=== PATIENT | male | born 1945 | race Two or more races ===

== ENCOUNTER 2017-12-23 21:44 | Emergency (ER) | payer MEDICARE, MEDICAID ==
[~2017-12-23] VITALS: Ht 157.5 cm; Wt 60.0 kg
[~2017-12-23 21:44] MED LIST: ASPI-1265 PO; ATOR20TA PO; CEPH500C5 PO; GABA-338 PO; LANTUS SQ; METF500T7 PO; PHEN-873 PO
[2017-12-23 21:52] VITALS: BP 144/77
== END 2017-12-23 22:38 | disposition home or self-care (01) ==
LOC: ER 21:45
DX: H61.21 Impacted cerumen, right ear (principal); S46.212A Strain of muscle, fascia and tendon of other parts of biceps, left arm, initial encounter; E11.42 Type 2 diabetes mellitus with diabetic polyneuropathy; E78.00 Pure hypercholesterolemia, unspecified; Z79.82 Long term (current) use of aspirin; Z79.4 Long term (current) use of insulin; X58.XXXA Exposure to other specified factors, initial encounter; Y93.89 Activity, other specified; Y92.89 Other specified places as the place of occurrence of the external cause; Y99.8 Other external cause status
CPT/HCPCS: 69209; 99282; 99284

== ENCOUNTER 2018-03-07 16:15 | Emergency (ER) | payer MEDICARE, MEDICAID ==
[~2018-03-07] VITALS: Ht 154.9 cm; Wt 65.9 kg
[2018-03-07 16:16] VITALS: BP 141/70
[2018-03-07] MEDS ORDERED: METH-360 PO (17:06)
[2018-03-07] MEDS ORDERED: NAPR-56 PO (17:06)
== END 2018-03-07 17:33 | disposition home or self-care (01) ==
LOC: ER 16:15
DX: M25.511 Pain in right shoulder (principal); E78.00 Pure hypercholesterolemia, unspecified; E11.42 Type 2 diabetes mellitus with diabetic polyneuropathy; G89.29 Other chronic pain; Z56.0 Unemployment, unspecified; Z79.82 Long term (current) use of aspirin; Z79.4 Long term (current) use of insulin; Z79.84 Long term (current) use of oral hypoglycemic drugs; Z79.899 Other long term (current) drug therapy
CPT/HCPCS: 29105; 99284; A4565

== ENCOUNTER 2018-08-21 14:04 | Emergency (ER) | payer MEDICARE, MEDICAID ==
[~2018-08-21] VITALS: Ht 157.5 cm; Wt 68.2 kg
[~2018-08-21 14:04] MED LIST changes: -CEPH500C5 PO; +METH-360 PO; +PHEN-786 PO; -PHEN-873 PO
[2018-08-21 14:08] VITALS: BP 148/79
[2018-08-21] MEDS ORDERED: acetaminophen 325mg tablet PO ONE (14:30)
[2018-08-21] MEDS ORDERED: proCHLORperazine 10mg tablet PO ONE (14:30)
[2018-08-21] MEDS ORDERED: ketorolac tromethamine 15mg/ml inj. IM ONE (15:50)
== END 2018-08-21 16:53 | disposition home or self-care (01) ==
LOC: ER 14:05
DX: R51 Headache (principal); R42 Dizziness and giddiness; E11.42 Type 2 diabetes mellitus with diabetic polyneuropathy; E78.00 Pure hypercholesterolemia, unspecified; G89.29 Other chronic pain; Z56.0 Unemployment, unspecified; Z79.82 Long term (current) use of aspirin; Z79.4 Long term (current) use of insulin; Z79.899 Other long term (current) drug therapy
CPT/HCPCS: 36415; 70450; 85651; 96372; 99284; J1885; Q0164

== ENCOUNTER 2019-01-25 16:00 | Emergency (ER) | payer MEDICARE, MEDICAID ==
[~2019-01-25] VITALS: Ht 157.5 cm; Wt 67.0 kg
[2019-01-25 16:16] VITALS: BP 127/76
== END 2019-01-25 17:38 | disposition home or self-care (01) ==
LOC: ER 16:01
DX: R21 Rash and other nonspecific skin eruption (principal); T50.995A Adverse effect of other drugs, medicaments and biological substances, initial encounter; S40.212A Abrasion of left shoulder, initial encounter; S40.211A Abrasion of right shoulder, initial encounter; R19.7 Diarrhea, unspecified; R11.2 Nausea with vomiting, unspecified; E78.00 Pure hypercholesterolemia, unspecified; G89.29 Other chronic pain; E11.42 Type 2 diabetes mellitus with diabetic polyneuropathy; Z56.0 Unemployment, unspecified; Z79.82 Long term (current) use of aspirin; Z79.4 Long term (current) use of insulin; Z79.84 Long term (current) use of oral hypoglycemic drugs; Z79.899 Other long term (current) drug therapy; X58.XXXA Exposure to other specified factors, initial encounter; Y93.89 Activity, other specified; Y92.89 Other specified places as the place of occurrence of the external cause; Y99.8 Other external cause status
CPT/HCPCS: 82948; 99284

== ENCOUNTER 2019-05-15 21:30 | Emergency (ER) | payer MEDICARE, MEDICAID ==
[~2019-05-15] VITALS: Ht 152.4 cm; Wt 77.3 kg
[~2019-05-15 21:30] MED LIST changes: +METF500T20 PO; -METF500T7 PO
--- NOTE | 2019-05-15 21:52 | NUR ---
Pt did not want to go back out into the lobby, Madelyn LICEA from [facility] said he could come on over and sit in the lobby over there. He was so happy.
--- NOTE | 2019-05-15 23:06 | NUR ---
He got up out of his electric w/c and onto the stretcher without any problems. His arms/legs are WNLS no deficits. C Collar still in place. Covered him up with 2 warmed blankets. He is resting.
[2019-05-16] MEDS ORDERED: cyclobenzaprine 10mg tablet PO ONE (01:45)
[2019-05-16] MEDS ORDERED: naproxen 500mg tablet PO ONE (01:45)
[2019-05-16 02:03] VITALS: BP 145/84
== END 2019-05-16 02:06 | disposition home or self-care (01) ==
LOC: ER 21:31
DX: M54.2 Cervicalgia (principal); R51 Headache; E11.42 Type 2 diabetes mellitus with diabetic polyneuropathy; G89.29 Other chronic pain; E78.00 Pure hypercholesterolemia, unspecified; Z79.4 Long term (current) use of insulin; Z79.82 Long term (current) use of aspirin; Z79.899 Other long term (current) drug therapy; Z87.440 Personal history of urinary (tract) infections; Z56.0 Unemployment, unspecified; W18.39XA Other fall on same level, initial encounter; Y93.89 Activity, other specified; Y92.89 Other specified places as the place of occurrence of the external cause; Y99.8 Other external cause status
CPT/HCPCS: 72040; 99284

== ENCOUNTER 2019-07-14 14:46 | Inpatient (IN) | payer MEDICARE, MEDICAID ==
[~2019-07-14] VITALS: Ht 177.8 cm; Wt 80.0 kg
[2019-07-14] MEDS ORDERED: normal saline 1000ML IV soln IVB ONE (14:55)
[2019-07-14 15:59] LABS: BASOPHILS % (AUTO) 0.2 % (0-1); EOSINOPHILS % (AUTO) 0.1 % (0-6); HEMATOCRIT 35.7 % (42.0-52.0); HEMOGLOBIN 11.6 g/dl (14.0-17.9); LYMPHOCYTES # (AUTO) 0.4 X10'3 (1.1-4.8); LYMPHOCYTES % (AUTO) 4.5 % (21-51); MEAN CORPUSCULAR HEMOGLOBIN 25.9 PG (27.0-31.0); MEAN CORPUSCULAR HGB CONC 32.4 g/dL (33.0-36.5); MEAN CORPUSCULAR VOLUME 79.8 FL (78-98); MEAN PLATELET VOLUME 9.4 FL (7.4-10.4); MONOCYTES # (AUTO) 0.5 X10'3 (0-0.9); MONOCYTES % (AUTO) 5.1 % (2-12); NEUTROPHILS # (AUTO) 8.4 X10'3 (1.8-7.7); NEUTROPHILS % (AUTO) 90.1 % (42-75); PLATELET COUNT 202 X10'3 (140-440); RED BLOOD COUNT 4.47 X10'6 (4.70-6.10); RED CELL DISTRIBUTION WIDTH 15.9 % (11.5-14.5); WHITE BLOOD COUNT 9.4 X10'3 (4.5-11.0)
--- NOTE | 2019-07-14 16:00 | NUR ---
PT IS SLEEPING, EASILY AROUSEABLE BUT FALLS ASLEEP BETWEEN QUESTIONS, PT IS GCS 13, EYES OPEN TO VOICE, ORIENTED TO PERSON ONLY, FOLLOWS SIMPLE COMMANDS, PUPILS ARE PINPOINT, RESP EVEN AND UNLABORED, SKIN P/W/D, CAREGIVER AT BEDSIDE
--- NOTE | 2019-07-14 16:01 | NUR ---
1ST LITER NS INFUSING W/O
--- NOTE | 2019-07-14 16:10 | NUR ---
IN AND OUT CATH DONE WITH STERILE TECHNIQUE, 300ML OF CLEAR DARK YELLOW OUT, SAMPLE SENT TO LAB
[2019-07-14 16:16] LABS: ANION GAP 10 (8-16); BILIRUBIN,TOTAL 0.7 MG/DL (0.1-1.0); BLOOD UREA NITROGEN 24 MG/DL (7-18); BUN/CREATININE RATIO 21.6 (5.4-32.0); CALCIUM 9.1 MG/DL (8.5-10.1); CHLORIDE 106 MMOL/L (99-107); CREATININE 1.11 MG/DL (0.60-1.10); GLUCOSE 123 MG/DL (70-104); POTASSIUM 4.1 MMOL/L (3.5-5.1); SODIUM 142 MMOL/L (135-145); TOTAL CARBON DIOXIDE 25.8 MMOL/L (24-32); TOTAL PROTEIN 7.8 G/DL (6.4-8.2); eGFR 65 ML/MIN
[2019-07-14 16:17] LABS: ALANINE AMINOTRANSFERASE 33 U/L (12-78); ALBUMIN/GLOBULIN RATIO 1.1 (1.1-1.5); ALKALINE PHOSPHATASE 103 IU/L (46-116); ASPARTATE AMINO TRANSFERASE 26 U/L (10-37)
[2019-07-14 16:22] LABS: ETHANOL < 0.010 GM/DL (0.0-0.010)
[2019-07-14 16:39] LABS: CLARITY,URINE CLEAR (Clear); COLOR,URINE YELLOW (Yellow); GLUCOSE, URINE NEGATIVE (Neg); KETONES,URINE TRACE mg/dl (Neg); LEUKOCYTE ESTERASE ,URINE NEGATIVE (Neg); NITRITES, URINE NEGATIVE (Neg); OCCULT BLOOD,URINE LARGE (Neg); PH,URINE 5.5 (4.8-8.0); PROTEIN,URINE NEGATIVE (Neg); UROBILINOGEN,URINE 0.2 E.U/dL (0.2-1.0)
[2019-07-14 16:50] LABS: UA COLLECTION TYPE FOLEY CATH
[2019-07-14 16:51] LABS: BACTERIA,URINE NONE SEEN /HPF (Neg); MUCUS STRANDS NONE SEEN /LPF (Neg); RBC,URINE 20-50 /HPF (0-2); SQUAMOUS EPITHELIAL CELL,UR NONE SEEN /LPF (FEW); WBC,URINE NONE SEEN /HPF (0-4)
[2019-07-14 16:57] LABS: URINE AMPHETAMINE SCREEN NEGATIVE (Neg); URINE BARBITUATE SCREEN NEGATIVE (Neg); URINE BENZODIAZEPINES SCREEN NEGATIVE (Neg); URINE CANNABINOID SCREEN NEGATIVE (Neg); URINE COCAINE SCREEN NEGATIVE (Neg); URINE METHADONE SCREEN NEGATIVE (Neg); URINE OPIATE SCREEN POSITIVE (Neg); URINE PHENCYCLIDINE SCREEN NEGATIVE (Neg)
[2019-07-14] MEDS: dextrose 5%-1/2 normal saline 1,000 ML IV SCH (17:17)
[2019-07-14] MEDS ORDERED: mag hydrox/Alum hydrox/simeth 30ml oral suspension PO PRN (17:20)
[2019-07-14] MEDS ORDERED: ondansetron/PF 4mg/2ml inj IV PRN (17:20)
[2019-07-14] MEDS ORDERED: magnesium hydroxide 30ml (MOM) UD suspension PO PRN (17:20)
--- NOTE | 2019-07-14 17:50 | NUR ---
PT'S [facility] WORKER DORA
[2019-07-14] MEDS ORDERED: PRAM0.754 PO (17:57)
[2019-07-14] MEDS ORDERED: LISI2.5T2 PO (17:57)
[2019-07-14] MEDS ORDERED: SIMV10TA6 PO (17:57)
[2019-07-14] MEDS ORDERED: ASPI-611 PO (17:57)
[2019-07-14] MEDS ORDERED: GLIP10TA11 PO (17:57)
[2019-07-14] MEDS ORDERED: PREG100C55 PO (17:57)
[2019-07-14] MEDS ORDERED: OXYC-511 PO (17:57)
[2019-07-14] MEDS ORDERED: INSU100I31 SQ (17:57)
[2019-07-14] MEDS ORDERED: IBUP-1984 PO (18:00)
--- NOTE | 2019-07-14 18:08 | NUR ---
PT CONTINUES TO SLEEP, AROUSEABLE TO VOICE, ORIENTED TO PERSON AND PLACE, FOLLOW SIMPLE COMMANDS, REMAINS GCS 13,
--- NOTE | 2019-07-14 18:43 | NUR ---
PT AWAKES TO PAINFUL STIMULUS, BUT FALL ASLEEP W/O ANSWERING QUESTIONS. VSS
--- NOTE | 2019-07-14 19:29 | NUR ---
REPORT TO ADELINE LICEA
[2019-07-14 20:00] VITALS: BP 110/56
[2019-07-14] MEDS: pregabalin 25mg capsule PO SCH (20:59)
[2019-07-14] MEDS ORDERED: insulin glargine (Lantus) pen - multi-dose SQ SCH ×2 (21:00)
--- NOTE | 2019-07-14 21:00 | NUR ---
PT arousable to speaking, but not clear enough to safely swallow medication
[2019-07-14 22:00] VITALS: BP 103/58
--- NOTE | 2019-07-15 03:06 | NUR ---
Reviewed and agree with SRN assessment.
[2019-07-15] MEDS: dextrose 5%-1/2 normal saline 1,000 ML IV SCH (05:02)
[2019-07-15 06:23] LABS: BASOPHILS % (AUTO) 0.1 % (0-1); EOSINOPHILS % (AUTO) 0 % (0-6); HEMATOCRIT 29.8 % (42.0-52.0); HEMOGLOBIN 9.7 g/dl (14.0-17.9); LYMPHOCYTES # (AUTO) 1.1 X10'3 (1.1-4.8); LYMPHOCYTES % (AUTO) 7.4 % (21-51); MEAN CORPUSCULAR HEMOGLOBIN 26.2 PG (27.0-31.0); MEAN CORPUSCULAR HGB CONC 32.7 g/dL (33.0-36.5); MEAN PLATELET VOLUME 9.5 FL (7.4-10.4); NEUTROPHILS # (AUTO) 12.8 X10'3 (1.8-7.7); NEUTROPHILS % (AUTO) 85.5 % (42-75); PLATELET COUNT 174 X10'3 (140-440); RED BLOOD COUNT 3.72 X10'6 (4.70-6.10); RED CELL DISTRIBUTION WIDTH 16.3 % (11.5-14.5)
--- NOTE | 2019-07-15 06:30 | NUR ---
Problems reprioritized. Patient report given, questions answered & plan of care reviewed with Flory LICEA.
[2019-07-15 06:31] LABS: ALBUMIN 3.1 G/DL (3.4-5.0); ANION GAP 8 (8-16); BLOOD UREA NITROGEN 22 MG/DL (7-18); BUN/CREATININE RATIO 19.8 (5.4-32.0); CALCIUM 8.1 MG/DL (8.5-10.1); CHLORIDE 108 MMOL/L (99-107); CREATININE 1.11 MG/DL (0.60-1.10); GLUCOSE 96 MG/DL (70-104); POTASSIUM 3.8 MMOL/L (3.5-5.1); SODIUM 141 MMOL/L (135-145); TOTAL CARBON DIOXIDE 25.4 MMOL/L (24-32); eGFR 65 ML/MIN
[2019-07-15] MEDS: atorvastatin 10mg tablet PO SCH (08:04)
[2019-07-15] MEDS: aspirin 81mg tablet.DR PO SCH (08:04)
[2019-07-15] MEDS: pregabalin 25mg capsule PO SCH ×3 (08:05→20:04)
[2019-07-15] MEDS: acetaminophen 325mg tablet PO PRN (08:07)
[2019-07-15] MEDS: lisinopril 2.5mg tablet PO SCH (08:11)
[2019-07-15 08:56] VITALS: BP 114/56
[2019-07-15 10:00] VITALS: BP 104/45
--- NOTE | 2019-07-15 10:33 | NUR ---
Malnutrition consult: Pt with positive malnutrition risk screen on admission given unsure if pt has lost any wt. Unable to obtain any information from pt at this time as pt a poor historian and admit with AMS, likely toxic encephalopathy per H&P. Pt A/O x1 and confused per physical assessment. Pt currently on CHO controlled diet documented with 0% PO intake first meal up to 25-50% PO intake second meal. AMS likely to interfere with PO intake. Only recent scaled wt hx is 65.91 kg taken 03/07/18 with a chair scale, current documented wt is an "emergency" wt at 80 kg. Noted that patient's documented ht hx is 60-62" at past visits, currently documented as 70". Updated BMI is obese at 33.3. Pt with no significant edema or decrease in muscle strength. Pt currently does not meet criteria for malnutrition. DM consult: Pt with A1c 7.8, DM education not appropriate at this time given current mentation. Will continue to follow. Addendum: 07/15/19 at [address] Amended: Links added.
[2019-07-15] MEDS: oxyCODONE/APAP 10/325mg tablet PO PRN ×2 (11:13→20:05)
[2019-07-15] MEDS ORDERED: glucagon, human recombinant 1mg kit SUBCUT PRN (12:20)
[2019-07-15] MEDS ORDERED: dextrose ORAL solution 15 GM/59 ML bottle PO PRN ×2 (12:20)
[2019-07-15] MEDS ORDERED: dextrose 50%-water 50ml dispensing syringe IV PRN ×2 (12:20)
[2019-07-15 18:00] VITALS: BP 118/60
--- NOTE | 2019-07-15 18:33 | NUR ---
Patient in room ORTHO 4009. I have received report from Flory LICEA and had the opportunity to ask questions and assume patient care. patient is with family members having dinner in the room.
[2019-07-15] MEDS: insulin glargine (Lantus) pen - multi-dose SQ SCH (21:18)
[2019-07-15 23:31] VITALS: BP 125/50
[2019-07-16] MEDS: oxyCODONE/APAP 10/325mg tablet PO PRN (04:42)
[2019-07-16 06:00] VITALS: BP 129/50
[2019-07-16 06:16] LABS: BASOPHILS % (AUTO) 0.4 % (0-1); EOSINOPHILS # (AUTO) 0.1 X10'3 (0-0.9); EOSINOPHILS % (AUTO) 1.7 % (0-6); HEMATOCRIT 30.7 % (42.0-52.0); HEMOGLOBIN 10.1 g/dl (14.0-17.9); LYMPHOCYTES # (AUTO) 1.3 X10'3 (1.1-4.8); LYMPHOCYTES % (AUTO) 14.7 % (21-51); MEAN CORPUSCULAR HEMOGLOBIN 26.1 PG (27.0-31.0); MEAN CORPUSCULAR HGB CONC 32.9 g/dL (33.0-36.5); MEAN CORPUSCULAR VOLUME 79.4 FL (78-98); MEAN PLATELET VOLUME 9.5 FL (7.4-10.4); MONOCYTES # (AUTO) 0.7 X10'3 (0-0.9); MONOCYTES % (AUTO) 8.1 % (2-12); NEUTROPHILS # (AUTO) 6.8 X10'3 (1.8-7.7); NEUTROPHILS % (AUTO) 75.1 % (42-75); PLATELET COUNT 175 X10'3 (140-440); RED BLOOD COUNT 3.86 X10'6 (4.70-6.10); RED CELL DISTRIBUTION WIDTH 16.2 % (11.5-14.5); WHITE BLOOD COUNT 9.1 X10'3 (4.5-11.0)
--- NOTE | 2019-07-16 06:30 | NUR ---
Patient in room ORTHO 4009. I have received report from and had the opportunity to ask questions and assume patient care VINAYAK Santana.
[2019-07-16 06:40] LABS: ALBUMIN 2.9 G/DL (3.4-5.0); ANION GAP 9 (8-16); BLOOD UREA NITROGEN 20 MG/DL (7-18); BUN/CREATININE RATIO 18.9 (5.4-32.0); CALCIUM 8.4 MG/DL (8.5-10.1); CHLORIDE 110 MMOL/L (99-107); CREATININE 1.06 MG/DL (0.60-1.10); GLUCOSE 81 MG/DL (70-104); POTASSIUM 3.6 MMOL/L (3.5-5.1); SODIUM 145 MMOL/L (135-145); TOTAL CARBON DIOXIDE 26.1 MMOL/L (24-32); eGFR 69 ML/MIN
--- NOTE | 2019-07-16 06:43 | NUR ---
Problems reprioritized. Patient report given, questions answered & plan of care reviewed with Carleen LICEA.
[2019-07-16] MEDS: aspirin 81mg tablet.DR PO SCH (08:26)
[2019-07-16] MEDS: atorvastatin 10mg tablet PO SCH (08:26)
[2019-07-16] MEDS: pregabalin 25mg capsule PO SCH ×3 (08:26→21:27)
[2019-07-16] MEDS: lisinopril 2.5mg tablet PO SCH (08:27)
[2019-07-16] MEDS: acetaminophen 325mg tablet PO PRN (09:01)
[2019-07-16 10:00] VITALS: BP 122/55
[2019-07-16] MEDS ORDERED: potassium CL 10mEq/100ml bag 100 ML IV PRN (12:30)
[2019-07-16] MEDS ORDERED: furosemide 10 MG/1 ML 10ml inj IV ONE (12:30)
[2019-07-16] MEDS ORDERED: magnesium Cl slow-release 64mg tablet PO PRN (12:30)
[2019-07-16] MEDS ORDERED: potassium Cl 20 mEq SR tablet PO PRN (12:30)
[2019-07-16] MEDS ORDERED: magnesium 4gm in 100ml NS 100 ML IV PRN (12:30)
[2019-07-16] MEDS ORDERED: loperamide 2mg capsule PO ONE (14:25)
[2019-07-16 18:00] VITALS: BP 143/59
--- NOTE | 2019-07-16 18:48 | NUR ---
Problems reprioritized. Patient report given, questions answered & plan of care reviewed with VINAYAK Reilly.
[2019-07-16] MEDS: furosemide 40mg/4ml inj IV SCH (21:27)
[2019-07-16] MEDS: insulin glargine (Lantus) pen - multi-dose SQ SCH (21:36)
[2019-07-16 22:00] VITALS: BP 100/50
[2019-07-17] MEDS: heparin, porcine 5000 units/ml vial SQ SCH ×3 (00:17→20:07)
[2019-07-17 06:00] VITALS: BP 105/51
--- NOTE | 2019-07-17 06:29 | NUR ---
Received report from Bertha LICEA
--- NOTE | 2019-07-17 06:35 | NUR ---
REPORT GIVEN TO VINAYAK TORRES.
[2019-07-17 06:43] LABS: BASOPHILS % (AUTO) 0.4 % (0-1); EOSINOPHILS # (AUTO) 0.1 X10'3 (0-0.9); HEMATOCRIT 34.7 % (42.0-52.0); HEMOGLOBIN 11.5 g/dl (14.0-17.9); LYMPHOCYTES # (AUTO) 1.2 X10'3 (1.1-4.8); LYMPHOCYTES % (AUTO) 14.5 % (21-51); MEAN CORPUSCULAR HEMOGLOBIN 26.1 PG (27.0-31.0); MEAN CORPUSCULAR HGB CONC 33.1 g/dL (33.0-36.5); MEAN CORPUSCULAR VOLUME 78.8 FL (78-98); MEAN PLATELET VOLUME 9.2 FL (7.4-10.4); MONOCYTES # (AUTO) 0.8 X10'3 (0-0.9); MONOCYTES % (AUTO) 9.7 % (2-12); NEUTROPHILS # (AUTO) 6.1 X10'3 (1.8-7.7); NEUTROPHILS % (AUTO) 74.4 % (42-75); PLATELET COUNT 229 X10'3 (140-440); RED BLOOD COUNT 4.41 X10'6 (4.70-6.10); RED CELL DISTRIBUTION WIDTH 16.4 % (11.5-14.5); WHITE BLOOD COUNT 8.2 X10'3 (4.5-11.0)
[2019-07-17 07:04] LABS: ALBUMIN 3.4 G/DL (3.4-5.0); ANION GAP 9 (8-16); BLOOD UREA NITROGEN 23 MG/DL (7-18); BUN/CREATININE RATIO 21.1 (5.4-32.0); CALCIUM 8.7 MG/DL (8.5-10.1); CHLORIDE 102 MMOL/L (99-107); CREATININE 1.09 MG/DL (0.60-1.10); GLUCOSE 51 MG/DL (70-104); MAGNESIUM 2.1 MG/DL (1.5-2.4); SODIUM 141 MMOL/L (135-145); TOTAL CARBON DIOXIDE 29.8 MMOL/L (24-32); eGFR 66 ML/MIN
[2019-07-17 07:16] LABS: POTASSIUM 2.9 MMOL/L (3.5-5.1)
[2019-07-17] MEDS: lisinopril 2.5mg tablet PO SCH (08:00)
[2019-07-17] MEDS: furosemide 40mg/4ml inj IV SCH ×2 (08:00→20:06)
[2019-07-17] MEDS ORDERED: insulin Lispro (HumaLOG) vial - multi-dose SQ SCH (08:10)
[2019-07-17] MEDS ORDERED: MESSAGE TO PHARMACY PO ONE (08:10)
[2019-07-17] MEDS: aspirin 81mg tablet.DR PO SCH (09:45)
[2019-07-17] MEDS: pregabalin 25mg capsule PO SCH ×3 (09:46→20:07)
[2019-07-17] MEDS: atorvastatin 10mg tablet PO SCH (09:46)
[2019-07-17] MEDS: potassium Cl 20 mEq SR tablet PO PRN ×2 (09:55→13:26)
[2019-07-17 10:00] VITALS: BP 136/61
[2019-07-17] MEDS ORDERED: LORazepam 1 MG tablet PO ONE (10:50)
[2019-07-17] MEDS ORDERED: iohexol 350MG/ML 100ml bottle IV ONE (11:51)
[2019-07-17] MEDS: oxyCODONE/APAP 10/325mg tablet PO PRN ×2 (13:25→20:07)
[2019-07-17 14:41] LABS: MAGNESIUM 2.2 MG/DL (1.5-2.4); POTASSIUM 3.8 MMOL/L (3.5-5.1)
[2019-07-17 18:00] VITALS: BP 119/56
--- NOTE | 2019-07-17 18:22 | NUR ---
Problems reprioritized. Patient report given, questions answered & plan of care reviewed with VINAYAK Reilly.
[2019-07-17] MEDS: insulin glargine (Lantus) pen - multi-dose SQ SCH ×2 (19:30→21:15)
[2019-07-17 22:00] VITALS: BP 114/58
[2019-07-17] MEDS ORDERED: levoFLOXACIN-Levaquin 750MG/D5 150 ML IV SCH (22:00)
[2019-07-18] MEDS: oxyCODONE/APAP 10/325mg tablet PO PRN (04:08)
[2019-07-18 05:43] LABS: BASOPHILS % (AUTO) 0.7 % (0-1); EOSINOPHILS # (AUTO) 0.2 X10'3 (0-0.9); EOSINOPHILS % (AUTO) 2.4 % (0-6); HEMATOCRIT 33.5 % (42.0-52.0); HEMOGLOBIN 11.1 g/dl (14.0-17.9); LYMPHOCYTES # (AUTO) 1.4 X10'3 (1.1-4.8); LYMPHOCYTES % (AUTO) 21.5 % (21-51); MEAN CORPUSCULAR HEMOGLOBIN 26.4 PG (27.0-31.0); MEAN CORPUSCULAR HGB CONC 33.3 g/dL (33.0-36.5); MEAN CORPUSCULAR VOLUME 79.4 FL (78-98); MEAN PLATELET VOLUME 9.2 FL (7.4-10.4); MONOCYTES # (AUTO) 0.6 X10'3 (0-0.9); MONOCYTES % (AUTO) 9.6 % (2-12); NEUTROPHILS # (AUTO) 4.3 X10'3 (1.8-7.7); NEUTROPHILS % (AUTO) 65.8 % (42-75); PLATELET COUNT 224 X10'3 (140-440); RED BLOOD COUNT 4.21 X10'6 (4.70-6.10); RED CELL DISTRIBUTION WIDTH 15.9 % (11.5-14.5); WHITE BLOOD COUNT 6.6 X10'3 (4.5-11.0)
[2019-07-18 06:00] VITALS: BP 108/61
[2019-07-18 06:03] LABS: ALBUMIN 3.2 G/DL (3.4-5.0); ANION GAP 9 (8-16); BLOOD UREA NITROGEN 25 MG/DL (7-18); BUN/CREATININE RATIO 18.4 (5.4-32.0); CALCIUM 8.1 MG/DL (8.5-10.1); CHLORIDE 103 MMOL/L (99-107); CREATININE 1.36 MG/DL (0.60-1.10); GLUCOSE 81 MG/DL (70-104); PHOSPHORUS 4.1 MG/DL (2.3-4.5); POTASSIUM 3.9 MMOL/L (3.5-5.1); SODIUM 141 MMOL/L (135-145); TOTAL CARBON DIOXIDE 29.2 MMOL/L (24-32); eGFR 52 ML/MIN
--- NOTE | 2019-07-18 06:05 | NUR ---
Patient in room ORTHO 4009. I have received report from Melba LICEA and had the opportunity to ask questions and assume patient care.
--- NOTE | 2019-07-18 06:36 | NUR ---
REPORT GIVEN TO VINAYAK GREEN.
[2019-07-18] MEDS: aspirin 81mg tablet.DR PO SCH (07:40)
[2019-07-18] MEDS: pregabalin 25mg capsule PO SCH (07:42)
[2019-07-18] MEDS: atorvastatin 10mg tablet PO SCH (07:42)
[2019-07-18] MEDS: furosemide 40mg/4ml inj IV SCH (07:43)
[2019-07-18] MEDS: lisinopril 2.5mg tablet PO SCH (07:43)
[2019-07-18] MEDS: heparin, porcine 5000 units/ml vial SQ SCH (07:43)
[2019-07-18 10:00] VITALS: BP 132/72
[2019-07-18] MEDS ORDERED: LEVO750T46 PO (10:04)
[2019-07-18] MEDS ORDERED: ALBU8.5H8 INH (10:05)
[2019-07-18] MEDS ORDERED: levoFLOXACIN 750MG TABLET PO SCH (11:00)
--- NOTE | 2019-07-18 13:14 | NUR ---
Patient stable for discharge home. All discharge instructions given to patient and prescriptions called into [facility] on [address]. IV out
[2019-07-19] MEDS ORDERED: levoFLOXACIN 750MG TABLET PO SCH (11:00)
== END 2019-07-18 12:25 | disposition home health service (06) | DRG 91 ==
LOC: ER 14:47 → OBSVTOIN 17:17 → ED HOLD 17:17 → ORTHO 4S 19:48
PROVIDERS: ADMIT Internal Medicine; ATTEND Family Medicine
PROC: 4A10X4Z Monitoring of Central Nervous Electrical Activity, External Approach (ICD-10-PCS; 2019-07-15)
PROC: B32T1ZZ Computerized Tomography (CT Scan) of Left Pulmonary Artery using Low Osmolar Contrast (ICD-10-PCS; principal; 2019-07-17)
PROC: B32S1ZZ Computerized Tomography (CT Scan) of Right Pulmonary Artery using Low Osmolar Contrast (ICD-10-PCS; 2019-07-17)
DX: G92 Toxic encephalopathy (principal); J18.9 Pneumonia, unspecified organism; D64.9 Anemia, unspecified; E11.42 Type 2 diabetes mellitus with diabetic polyneuropathy; E78.00 Pure hypercholesterolemia, unspecified; E78.5 Hyperlipidemia, unspecified; G89.29 Other chronic pain; I10 Essential (primary) hypertension; M54.9 Dorsalgia, unspecified; R55 Syncope and collapse; Z79.84 Long term (current) use of oral hypoglycemic drugs; Z56.0 Unemployment, unspecified; Z79.82 Long term (current) use of aspirin; Z79.899 Other long term (current) drug therapy; Z79.4 Long term (current) use of insulin
CPT/HCPCS: 36415; 70450; 70544; 70551; 71045; 71046; 71275; 80048; 80053; 80305; 80320; 80329; 81001; 82140; 82948; 83036; 83735; 84100; 84132; 84443; 85025; 85379; 87081; 93005; 93306; 93880; 93970; 95816; 96360; 97162; 97530; 99285; G0378; J1644; J1815; J1940; J1956; Q9967

== ENCOUNTER 2019-08-18 01:50 | Emergency (ER) | payer MEDICARE, MEDICAID ==
[~2019-08-18] VITALS: Ht 152.4 cm; Wt 71.5 kg
[~2019-08-18 01:50] MED LIST changes: +ALBU8.5H8 INH; -ASPI-1265 PO; +ASPI-611 PO; -ATOR20TA PO; -GABA-338 PO; +GLIP10TA11 PO; +IBUP-1984 PO; +INSU100I31 SQ; -LANTUS SQ; +LEVO750T46 PO; +LISI2.5T2 PO; -METF500T20 PO; -METH-360 PO; +OXYC-511 PO; -PHEN-786 PO; +PRAM0.754 PO; +PREG100C55 PO; +SIMV10TA98 PO
[2019-08-18] MEDS ORDERED: AZIT250T PO (02:12)
[2019-08-18 02:25] VITALS: BP 149/73
== END 2019-08-18 02:27 | disposition home or self-care (01) ==
LOC: ER 01:51
DX: R05 Cough (principal); R09.89 Other specified symptoms and signs involving the circulatory and respiratory systems; R09.3 Abnormal sputum; R51 Headache; E11.42 Type 2 diabetes mellitus with diabetic polyneuropathy; E78.00 Pure hypercholesterolemia, unspecified; I10 Essential (primary) hypertension; G89.29 Other chronic pain; Z56.0 Unemployment, unspecified; Z79.82 Long term (current) use of aspirin; Z79.4 Long term (current) use of insulin; Z79.899 Other long term (current) drug therapy
CPT/HCPCS: 71045; 87502; 87503; 99284

== ENCOUNTER 2020-04-09 02:55 | Emergency (ER) | payer BC, MEDICARE, MEDICAID ==
[~2020-04-09] VITALS: Ht 152.4 cm; Wt 86.4 kg
[~2020-04-09 02:55] MED LIST changes: -LEVO750T46 PO
[2020-04-09] MEDS ORDERED: oxyCODONE IR 5mg (immed. release) tablet PO ONE (03:40)
[2020-04-09 05:08] VITALS: BP 138/106
== END 2020-04-09 05:12 | disposition home or self-care (01) ==
LOC: ER 02:55
DX: M54.42 Lumbago with sciatica, left side (principal); M79.652 Pain in left thigh; M79.89 Other specified soft tissue disorders; E11.42 Type 2 diabetes mellitus with diabetic polyneuropathy; E78.00 Pure hypercholesterolemia, unspecified; I10 Essential (primary) hypertension; G89.29 Other chronic pain; Z87.440 Personal history of urinary (tract) infections; Z98.890 Other specified postprocedural states; Z56.0 Unemployment, unspecified; Z79.4 Long term (current) use of insulin; Z79.899 Other long term (current) drug therapy
CPT/HCPCS: 72131; 99284

== ENCOUNTER 2020-06-14 22:17 | Emergency (ER) | payer BC, MEDICARE, MEDICAID ==
[~2020-06-14] VITALS: Ht 152.4 cm; Wt 81.4 kg
[~2020-06-14 22:17] MED LIST changes: -OXYC-511 PO; +OXYC1TAB17 PO
[2020-06-14 22:19] VITALS: BP 173/85
[2020-06-14] MEDS ORDERED: TETanus/Pertussis (Acell)/Diphther VAC/PF (Tdap-Adult) 0.5ml syringe IMVAC ONE (22:45)
[2020-06-14] MEDS ORDERED: LIDOcaine 1% W/epiNEPHrine 1:200,000 10ml vial IJ ONE (22:45)
[2020-06-14] MEDS ORDERED: CEPH250T PO (23:22)
[2020-06-15] MEDS ORDERED: bacitracin 15gm ointment TP ONE (00:50)
== END 2020-06-15 01:05 | disposition home or self-care (01) ==
LOC: ER 22:18
DX: S91.115A Laceration without foreign body of left lesser toe(s) without damage to nail, initial encounter (principal); E11.42 Type 2 diabetes mellitus with diabetic polyneuropathy; E78.00 Pure hypercholesterolemia, unspecified; I10 Essential (primary) hypertension; G89.29 Other chronic pain; Z87.440 Personal history of urinary (tract) infections; Z98.890 Other specified postprocedural states; Z56.0 Unemployment, unspecified; Z79.82 Long term (current) use of aspirin; Z79.4 Long term (current) use of insulin; Z79.899 Other long term (current) drug therapy; X58.XXXA Exposure to other specified factors, initial encounter; Y93.89 Activity, other specified; Y92.89 Other specified places as the place of occurrence of the external cause; Y99.8 Other external cause status
CPT/HCPCS: 12001; 90471; 90715; 99283

== ENCOUNTER 2021-05-22 07:45 | Emergency (ER) | payer MEDICARE, MEDICAID ==
[~2021-05-22] VITALS: Ht 154.9 cm; Wt 80.0 kg
[~2021-05-22 07:45] MED LIST changes: +ALBU8.5H17 INH; -ALBU8.5H8 INH; +LISI2.5T14 PO; -LISI2.5T2 PO
[2021-05-22 07:49] VITALS: BP 142/64
== END 2021-05-22 17:33 | disposition home or self-care (01) ==
LOC: ER 07:46
DX: S91.311A Laceration without foreign body, right foot, initial encounter (principal); E78.00 Pure hypercholesterolemia, unspecified; I10 Essential (primary) hypertension; E11.9 Type 2 diabetes mellitus without complications; G89.29 Other chronic pain; Z87.440 Personal history of urinary (tract) infections; Z98.890 Other specified postprocedural states; Z56.0 Unemployment, unspecified; Z79.82 Long term (current) use of aspirin; Z79.4 Long term (current) use of insulin; Z79.899 Other long term (current) drug therapy; W45.8XXA Other foreign body or object entering through skin, initial encounter; Y93.89 Activity, other specified; Y92.89 Other specified places as the place of occurrence of the external cause; Y99.8 Other external cause status
CPT/HCPCS: 12001; 99284

== ENCOUNTER 2021-12-02 06:26 | Emergency (ER) | payer MEDICARE, MEDICAID ==
[~2021-12-02] VITALS: Ht 167.6 cm; Wt 90.0 kg
[2021-12-02 06:53] LABS: CLARITY,URINE TURBID (Clear)
[2021-12-02 06:53] LABS: BASOPHILS # (AUTO) 0.1 X10'3 (0-0.2); BASOPHILS % (AUTO) 1.1 % (0-1); EOSINOPHILS # (AUTO) 0.1 X10'3 (0-0.9); EOSINOPHILS % (AUTO) 2.2 % (0-6); HEMATOCRIT 42.9 % (42.0-52.0); HEMOGLOBIN 14.4 g/dl (14.0-17.9); LYMPHOCYTES # (AUTO) 1.1 X10'3 (1.1-4.8); LYMPHOCYTES % (AUTO) 17.6 % (21-51); MEAN CORPUSCULAR HEMOGLOBIN 29.1 PG (27.0-31.0); MEAN CORPUSCULAR HGB CONC 33.5 g/dL (33.0-36.5); MEAN CORPUSCULAR VOLUME 86.9 FL (78-98); MEAN PLATELET VOLUME 9.7 FL (7.4-10.4); MONOCYTES # (AUTO) 0.5 X10'3 (0-0.9); MONOCYTES % (AUTO) 8.3 % (2-12); NEUTROPHILS # (AUTO) 4.3 X10'3 (1.8-7.7); NEUTROPHILS % (AUTO) 70.8 % (42-75); PLATELET COUNT 183 X10'3 (140-440); RED BLOOD COUNT 4.94 X10'6 (4.70-6.10); RED CELL DISTRIBUTION WIDTH 13.9 % (11.5-14.5); WHITE BLOOD COUNT 6.1 X10'3 (4.5-11.0)
[2021-12-02 07:03] LABS: UA COLLECTION TYPE VOIDED
[2021-12-02 07:04] LABS: COLOR,URINE Brown (Yellow)
[2021-12-02 07:08] LABS: SQUAMOUS EPITHELIAL CELL,UR MODERATE /LPF (FEW)
[2021-12-02 07:09] LABS: RBC,URINE TNTC /HPF (0-2)
[2021-12-02 07:10] LABS: WBC,URINE TNTC /HPF (0-4)
[2021-12-02 07:13] LABS: BACTERIA,URINE 1+ /HPF (Neg)
[2021-12-02 07:15] LABS: ALANINE AMINOTRANSFERASE 36 U/L (12-78); ALBUMIN 3.8 G/DL (3.4-5.0); ALKALINE PHOSPHATASE 98 IU/L (46-116); ANION GAP 9 (8-16); ASPARTATE AMINO TRANSFERASE 27 U/L (10-37); BILIRUBIN,TOTAL 0.5 MG/DL (0.1-1.0); BLOOD UREA NITROGEN 12 MG/DL (7-18); BUN/CREATININE RATIO 13.3 (5.4-32.0); CALCIUM 8.9 MG/DL (8.5-10.1); CHLORIDE 101 MMOL/L (99-107); GLUCOSE 204 MG/DL (70-104); SODIUM 141 MMOL/L (135-145); TOTAL PROTEIN 7.5 G/DL (6.4-8.2); eGFR 82 ML/MIN
[2021-12-02] MEDS ORDERED: normal saline 1000ML IV soln IVB ONE (07:30)
[2021-12-02] MEDS ORDERED: CefTRIAXone 2gm/D5W 50ml BAG 50 ML IV ONE (07:30)
[2021-12-02] MEDS ORDERED: ketorolac trometh. 30mg/ml inj. IV ONE (07:30)
[2021-12-02] MEDS ORDERED: CEPH-585 PO (08:58)
[2021-12-02 09:28] VITALS: BP 135/78
== END 2021-12-02 09:30 | disposition home or self-care (01) ==
LOC: ER 06:26
DX: N39.0 Urinary tract infection, site not specified (principal); R10.2 Pelvic and perineal pain; R31.9 Hematuria, unspecified; E11.42 Type 2 diabetes mellitus with diabetic polyneuropathy; E78.00 Pure hypercholesterolemia, unspecified; I10 Essential (primary) hypertension; G89.29 Other chronic pain; Z87.440 Personal history of urinary (tract) infections; Z98.890 Other specified postprocedural states; Z56.0 Unemployment, unspecified; Z79.82 Long term (current) use of aspirin; Z79.2 Long term (current) use of antibiotics; Z79.4 Long term (current) use of insulin; Z79.899 Other long term (current) drug therapy
CPT/HCPCS: 36415; 80053; 81001; 84145; 85025; 96365; 96375; 99284; J0696; J1885; J7030

== ENCOUNTER 2022-01-01 07:30 | Emergency (ER) | payer MEDICARE, MEDICAID ==
[~2022-01-01] VITALS: Ht 157.5 cm; Wt 79.5 kg
[~2022-01-01 07:30] MED LIST changes: +CEPH-585 PO
[2022-01-01] MEDS ORDERED: morphine 4 MG/ML inj SYRINge IV ONE (07:40)
[2022-01-01] MEDS ORDERED: ondansetron/PF 4mg/2ml inj IV ONE (07:40)
[2022-01-01] MEDS ORDERED: normal saline 1000ML IV soln IVB ONE (07:40)
--- NOTE | 2022-01-01 08:12 | NUR ---
PT TO CT WITH STACKER OPERATOR
[2022-01-01 08:16] LABS: BASOPHILS # (AUTO) 0.1 X10'3 (0-0.2); EOSINOPHILS # (AUTO) 0.1 X10'3 (0-0.9); EOSINOPHILS % (AUTO) 2.5 % (0-6); HEMATOCRIT 43.1 % (42.0-52.0); HEMOGLOBIN 14.4 g/dl (14.0-17.9); LYMPHOCYTES % (AUTO) 18.8 % (21-51); MEAN CORPUSCULAR HEMOGLOBIN 28.7 PG (27.0-31.0); MEAN CORPUSCULAR HGB CONC 33.4 g/dL (33.0-36.5); MEAN PLATELET VOLUME 9.9 FL (7.4-10.4); MONOCYTES # (AUTO) 0.4 X10'3 (0-0.9); MONOCYTES % (AUTO) 7.1 % (2-12); NEUTROPHILS # (AUTO) 3.9 X10'3 (1.8-7.7); NEUTROPHILS % (AUTO) 70.6 % (42-75); PLATELET COUNT 190 X10'3 (140-440); RED BLOOD COUNT 5.01 X10'6 (4.70-6.10); RED CELL DISTRIBUTION WIDTH 13.5 % (11.5-14.5); WHITE BLOOD COUNT 5.5 X10'3 (4.5-11.0)
--- NOTE | 2022-01-01 08:35 | NUR ---
Pt up to bedside commode. No needs at this time.
[2022-01-01 08:39] LABS: ALANINE AMINOTRANSFERASE 34 U/L (12-78); ALBUMIN 3.7 G/DL (3.4-5.0); ALBUMIN/GLOBULIN RATIO 1.1 (1.1-1.5); ALKALINE PHOSPHATASE 99 IU/L (46-116); ASPARTATE AMINO TRANSFERASE 20 U/L (10-37); BILIRUBIN,TOTAL 0.7 MG/DL (0.1-1.0); BLOOD UREA NITROGEN 17 MG/DL (7-18); BUN/CREATININE RATIO 18.5 (5.4-32.0); CALCIUM 8.7 MG/DL (8.5-10.1); CHLORIDE 100 MMOL/L (99-107); CREATININE 0.92 MG/DL (0.60-1.10); GLUCOSE 286 MG/DL (70-104); POTASSIUM 3.6 MMOL/L (3.5-5.1); SODIUM 138 MMOL/L (135-145); TOTAL PROTEIN 7.2 G/DL (6.4-8.2); eGFR 80 ML/MIN
[2022-01-01 08:50] LABS: ANION GAP 12 (8-16); TOTAL CARBON DIOXIDE 26.1 MMOL/L (24-32)
--- NOTE | 2022-01-01 08:59 | NUR ---
Pt still trying to have BM. Unable to at this moment. More wipes provided. Pt has call light in reach and is wants to continue trying.
--- NOTE | 2022-01-01 09:26 | NUR ---
MD ordered enema of choice. Pt up to bedside commode to attempt prior to enema. Awaiting pt's permission
--- NOTE | 2022-01-01 10:09 | NUR ---
Pt given mineral oil enema without success. Will attempt soap suds enema after pt is done attempting BM
--- NOTE | 2022-01-01 10:22 | NUR ---
Pt had small amount of BM out. States it is really hard. Doesn't want an additional enema at this time.
--- NOTE | 2022-01-01 10:48 | NUR ---
Pt on commode talking on phone, no apparent distress or needs at this time.
[2022-01-01] MEDS ORDERED: magnesium citrate 296ml oral solution PO ONE (11:05)
[2022-01-01] MEDS ORDERED: POLY119P2 PO (11:21)
--- NOTE | 2022-01-01 11:41 | NUR ---
Pt on commode. Requesting something for his neuropathy. MD ok with giving pt his standard medications if he is due for them. none noted when looking at his chart. Only one for parkinson's symptoms.
--- NOTE | 2022-01-01 13:05 | NUR ---
Pt is on the bedside comode. +large BM.
[2022-01-01 13:59] VITALS: BP 122/87
== END 2022-01-01 14:00 | disposition home or self-care (01) ==
LOC: ER 07:31
DX: K59.00 Constipation, unspecified (principal); R10.84 Generalized abdominal pain; R30.0 Dysuria; R60.0 Localized edema; R10.30 Lower abdominal pain, unspecified; E11.43 Type 2 diabetes mellitus with diabetic autonomic (poly)neuropathy; E78.00 Pure hypercholesterolemia, unspecified; I10 Essential (primary) hypertension; G89.29 Other chronic pain; Z87.440 Personal history of urinary (tract) infections; Z56.0 Unemployment, unspecified; Z79.82 Long term (current) use of aspirin; Z79.4 Long term (current) use of insulin; Z79.899 Other long term (current) drug therapy
CPT/HCPCS: 36415; 71045; 74176; 80053; 85025; 96361; 96374; 96375; 99285; J2270; J2405; J7030

== ENCOUNTER 2022-02-12 21:29 | Inpatient (IN) | payer MEDICARE, MEDICAID ==
[~2022-02-12] VITALS: Ht 157.5 cm; Wt 68.6 kg
[~2022-02-12 21:29] MED LIST changes: +POLY119P2 PO
[2022-02-12 22:53] LABS: BASOPHILS # (AUTO) 0.1 X10'3 (0-0.2); EOSINOPHILS # (AUTO) 0.1 X10'3 (0-0.9); EOSINOPHILS % (AUTO) 1.3 % (0-6); HEMATOCRIT 39.8 % (42.0-52.0); HEMOGLOBIN 13.2 g/dl (14.0-17.9); LYMPHOCYTES # (AUTO) 1.4 X10'3 (1.1-4.8); LYMPHOCYTES % (AUTO) 24.2 % (21-51); MEAN CORPUSCULAR HEMOGLOBIN 28.3 PG (27.0-31.0); MEAN CORPUSCULAR HGB CONC 33.1 g/dL (33.0-36.5); MEAN CORPUSCULAR VOLUME 85.5 FL (78-98); MEAN PLATELET VOLUME 8.7 FL (7.4-10.4); MONOCYTES # (AUTO) 0.5 X10'3 (0-0.9); NEUTROPHILS # (AUTO) 3.8 X10'3 (1.8-7.7); NEUTROPHILS % (AUTO) 64.5 % (42-75); PLATELET COUNT 223 X10'3 (140-440); RED BLOOD COUNT 4.65 X10'6 (4.70-6.10); RED CELL DISTRIBUTION WIDTH 14.1 % (11.5-14.5); WHITE BLOOD COUNT 5.8 X10'3 (4.5-11.0)
[2022-02-12 23:09] LABS: ALANINE AMINOTRANSFERASE 37 U/L (12-78); ALBUMIN 3.4 G/DL (3.4-5.0); ALKALINE PHOSPHATASE 84 IU/L (46-116); ANION GAP 3 (8-16); ASPARTATE AMINO TRANSFERASE 36 U/L (10-37); BILIRUBIN,TOTAL 0.4 MG/DL (0.1-1.0); BLOOD UREA NITROGEN 15 MG/DL (7-18); BUN/CREATININE RATIO 15.3 (5.4-32.0); C-REACTIVE PROTEIN 0.24 MG/DL (0.0-0.5); CALCIUM 8.2 MG/DL (8.5-10.1); CHLORIDE 108 MMOL/L (99-107); CREATININE 0.98 MG/DL (0.60-1.10); GLUCOSE 237 MG/DL (70-104); HEMOGLOBIN A1C 9.1 % (4.5-6.2); POTASSIUM 4.4 MMOL/L (3.5-5.1); SODIUM 142 MMOL/L (135-145); TOTAL CARBON DIOXIDE 30.6 MMOL/L (24-32); TOTAL PROTEIN 6.7 G/DL (6.4-8.2); eGFR 75 ML/MIN
[2022-02-12 23:53] LABS: CLARITY,URINE CLEAR (Clear); COLOR,URINE YELLOW (Yellow); GLUCOSE, URINE 250 mg/dl (Neg); KETONES,URINE NEGATIVE (Neg); LEUKOCYTE ESTERASE ,URINE NEGATIVE (Neg); NITRITES, URINE NEGATIVE (Neg); OCCULT BLOOD,URINE NEGATIVE (Neg); PH,URINE 6.5 (4.8-8.0); PROTEIN,URINE NEGATIVE (Neg); UROBILINOGEN,URINE 0.2 E.U/dL (0.2-1.0)
--- NOTE | 2022-02-12 23:54 | NUR ---
Ultrasound at bedside
[2022-02-12 23:58] LABS: UA COLLECTION TYPE CLN CATCH MIDSTREAM
--- NOTE | 2022-02-13 00:39 | NUR ---
PT DOES NOT KNOW THE NAMES OF ANY OF HIS HOME MEDS OR PAST MEDICAL HISTORY.
[2022-02-13] MEDS ORDERED: diphenhydrAMINE 25mg capsule PO PRN (02:10)
[2022-02-13] MEDS ORDERED: ondansetron 4mg rapidly disintigrating tab PO PRN (02:10)
[2022-02-13] MEDS ORDERED: diphenhydrAMINE 50 mg/ml inj IV PRN (02:10)
[2022-02-13] MEDS ORDERED: HYDROcodone/acetaminophen 5mg/325mg tablet PO PRN (02:10)
[2022-02-13] MEDS ORDERED: morphine 2 MG/ML inj. syringe IV PRN ×2 (02:10)
[2022-02-13] MEDS: normal saline 1000ml 1,000 ML IV SCH ×2 (02:10→22:49)
[2022-02-13] MEDS ORDERED: bisacodyl 10mg suppository rectal RC PRN (02:10)
[2022-02-13] MEDS ORDERED: magnesium hydroxide 30ml (MOM) UD suspension PO PRN (02:10)
[2022-02-13] MEDS ORDERED: ondansetron/PF 4mg/2ml inj IV PRN (02:10)
[2022-02-13] MEDS ORDERED: acetaminophen 325mg tablet PO PRN ×2 (02:10)
[2022-02-13] MEDS ORDERED: acetaminophen 650mg rectal suppository RC PRN (02:10)
[2022-02-13] MEDS ORDERED: mag hydrox/Alum hydrox/simeth 30ml oral suspension PO PRN (02:10)
[2022-02-13] MEDS ORDERED: insulin Lispro (HumaLOG) vial - multi-dose SQ SCH (02:20)
[2022-02-13] MEDS ORDERED: glucagon, human recombinant 1mg kit SUBCUT PRN (02:20)
[2022-02-13] MEDS ORDERED: MESSAGE TO PHARMACY PO ONE (02:20)
[2022-02-13] MEDS ORDERED: dextrose 50%-water 50ml dispensing syringe IV PRN ×2 (02:20)
[2022-02-13] MEDS ORDERED: DEXTROSE 15 GM of carb/4 tabs (each vial/BOTTLE has 4 tablets) PO PRN ×2 (02:20)
[2022-02-13 02:36] LABS: APTT 28 SECONDS (22-32)
[2022-02-13 02:45] LABS: MAGNESIUM 1.9 MG/DL (1.5-2.4); PHOSPHORUS 3.1 MG/DL (2.3-4.5)
[2022-02-13] MEDS ORDERED: albuterol 2.5 MG/3 ML nebule NEB PRN (04:55)
[2022-02-13] MEDS ORDERED: IGA AVG IV SCH (08:00)
[2022-02-13] MEDS ORDERED: GLY IV SCH (08:00)
[2022-02-13] MEDS ORDERED: IMMUNE GLOBUL IV SCH (08:00)
[2022-02-13] MEDS ORDERED: PIGGYBACK IV SCH (08:00)
[2022-02-13] MEDS: pantoprazole 40mg Tablet.DR PO SCH (08:06)
[2022-02-13] MEDS: docusate sod 100mg capsule PO SCH ×2 (08:06→20:00)
[2022-02-13] MEDS: heparin, porcine 5000 units/ml vial SQ SCH ×2 (08:19→20:40)
[2022-02-13] MEDS: IMMUNE GLOBULIN IV SCH (08:40)
[2022-02-13] MEDS: [UNRECOGNIZED DRUG - OTHER] IV SCH (08:40)
--- NOTE | 2022-02-13 09:18 | NUR ---
petros rai gave me the report on the pt.
--- NOTE | 2022-02-13 09:20 | NUR ---
ROMEO MENDOZA IS PT FRIEND (NEIGHBOR) HE DID SAY IT WAS OKAY TO RELEASE INFO TO HER
--- NOTE | 2022-02-13 09:26 | NUR ---
spoke to danny who is taking care of patient ,concerned about patient recovery and not able to get back home . requesting for social media community manager get involve.
--- NOTE | 2022-02-13 11:45 | NUR ---
Patient refused attempt to get up to bedside commode to pass BM, also refused bedpan. Patient put his call light on and stated he need to be cleaned up. Patient cleaned, new linens put down, placed in diaper, and repositioned in bed with help of EMT student. No needs at this time.
--- NOTE | 2022-02-13 15:38 | NUR ---
page dr ngo at this time regarding pt immunoglobin order.
--- NOTE | 2022-02-13 15:55 | NUR ---
pt tolterating the immunoglobin increaded the rate by 2mg/kg/min .spoke to dr ngo and informed the md that pt is still on 0.4 mg/kg/min and pt has diarrhea and primary nurse never titrated due to diarrhea,as per md no issues with diarhhea ,its okay to increase the rate to immunoglobin.
[2022-02-13] MEDS: HYDROcodone/acetaminophen 10/325mg tab PO PRN ×2 (17:18→21:28)
--- NOTE | 2022-02-13 18:30 | NUR ---
Received report from Gurpreet LICEA from ED.
--- NOTE | 2022-02-13 19:30 | NUR ---
Patient came up to floor via gurney, patient moved via slide board to bed. Bed placed in locked and low position, call light within reach. Vitals taken.
[2022-02-13 19:40] VITALS: BP 146/71
[2022-02-13] MEDS ORDERED: temazepam 15mg capsule PO PRN (21:00)
[2022-02-13] MEDS: insulin glargine (Lantus) pen - multi-dose SQ SCH (21:00)
[2022-02-13] MEDS ORDERED: PREG200C28 PO (21:15)
[2022-02-13 22:00] VITALS: BP 143/68
--- NOTE | 2022-02-13 22:30 | NUR ---
Spoke with night time MD due to patient having severe nerve pain. Med reconciliation was not done by daytime MD. Night time MD said to continue patients home dose of Lyrica 200mg TID.
[2022-02-13] MEDS: pregabalin 25mg capsule PO SCH (22:48)
[2022-02-14] VITALS (7 sets, daily range): BP systolic 100–141; BP diastolic 50–68
--- NOTE | 2022-02-14 06:16 | NUR ---
Problems reprioritized. Patient report given, questions answered & plan of care reviewed with Charo LICEA.
[2022-02-14 06:32] LABS: BASOPHILS # (AUTO) 0.1 X10'3 (0-0.2); BASOPHILS % (AUTO) 1.2 % (0-1); EOSINOPHILS # (AUTO) 0.1 X10'3 (0-0.9); EOSINOPHILS % (AUTO) 1.5 % (0-6); HEMATOCRIT 38.2 % (42.0-52.0); HEMOGLOBIN 12.9 g/dl (14.0-17.9); LYMPHOCYTES # (AUTO) 1.2 X10'3 (1.1-4.8); LYMPHOCYTES % (AUTO) 26.6 % (21-51); MEAN CORPUSCULAR HEMOGLOBIN 29.1 PG (27.0-31.0); MEAN CORPUSCULAR HGB CONC 33.7 g/dL (33.0-36.5); MEAN CORPUSCULAR VOLUME 86.5 FL (78-98); MEAN PLATELET VOLUME 9.1 FL (7.4-10.4); MONOCYTES # (AUTO) 0.5 X10'3 (0-0.9); MONOCYTES % (AUTO) 10.7 % (2-12); NEUTROPHILS # (AUTO) 2.7 X10'3 (1.8-7.7); PLATELET COUNT 202 X10'3 (140-440); RED BLOOD COUNT 4.42 X10'6 (4.70-6.10); RED CELL DISTRIBUTION WIDTH 14.1 % (11.5-14.5); WHITE BLOOD COUNT 4.5 X10'3 (4.5-11.0)
[2022-02-14 06:50] LABS: ALANINE AMINOTRANSFERASE 32 U/L (12-78); ALBUMIN/GLOBULIN RATIO 0.8 (1.1-1.5); ALKALINE PHOSPHATASE 69 IU/L (46-116); ANION GAP 5 (8-16); ASPARTATE AMINO TRANSFERASE 26 U/L (10-37); BILIRUBIN,TOTAL 0.6 MG/DL (0.1-1.0); BLOOD UREA NITROGEN 14 MG/DL (7-18); BUN/CREATININE RATIO 17.1 (5.4-32.0); CALCIUM 8.3 MG/DL (8.5-10.1); CHLORIDE 106 MMOL/L (99-107); CHOL/HDL RATIO 4.1 (0.00-4.99); CHOLESTEROL 199 MG/DL (0-200); CREATININE 0.82 MG/DL (0.60-1.10); GLUCOSE 146 MG/DL (70-104); HDL CHOLESTEROL 49 MG/DL (35-60); LDL CHOLESTEROL 112 MG/DL (50-100); POTASSIUM 3.6 MMOL/L (3.5-5.1); SODIUM 139 MMOL/L (135-145); TOTAL CARBON DIOXIDE 27.9 MMOL/L (24-32); TOTAL PROTEIN 6.6 G/DL (6.4-8.2); TRIGLYCERIDES 175 MG/DL (20-135); eGFR > 90 ML/MIN
[2022-02-14] MEDS: docusate sod 100mg capsule PO SCH ×2 (07:51→20:00)
[2022-02-14] MEDS: pantoprazole 40mg Tablet.DR PO SCH (07:51)
[2022-02-14] MEDS: pregabalin 25mg capsule PO SCH ×3 (07:52→20:17)
[2022-02-14] MEDS: heparin, porcine 5000 units/ml vial SQ SCH (07:53)
[2022-02-14] MEDS: HYDROcodone/acetaminophen 10/325mg tab PO PRN ×2 (08:00→17:41)
--- NOTE | 2022-02-14 09:01 | NUR ---
Spoke to Reece, Pharmacist regarding immune globulin Gamunex order. He will be getting it ready and has confirmed that I will be running it at 82ml/hr.
--- NOTE | 2022-02-14 09:12 | NUR ---
Spoke with Reece Pharmacist again regarding rate. Initial rate on bottle shows 16.474ml/hr. He states that if patient is tolerating well then after 30minutes it can be increased to 82.368ml/hr.
[2022-02-14] MEDS: [UNRECOGNIZED DRUG - OTHER] IV SCH (09:24)
[2022-02-14] MEDS: IMMUNE GLOBULIN IV SCH (09:24)
--- NOTE | 2022-02-14 12:52 | NUR ---
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 Pt hx T2DM A1C 9.1% this admit per EMR. Pt reports 24-33lb wt loss w/ decrease appetite past 2 weeks per EMR. Pt seen by RD for written/verbal DM ed w/ RD contact information provided. Pt reports takes meds per rx, checks Glu BID w/ ranges fluctuating 150-300mg/dl depending on day though has intentionally decreased noodles intake as it was large source of carbs daily and PCP recently adjusted insulin for better Glu control. Pt reports takes Trulicity Q7D on Wednesday, Lantus BID 47 units, and AM DM med unsure name though likely Glipizide reported in EMR. Pt reports 25lb wt loss past 2 weeks given weakness unable to make it to his kitchen w/ UBW 170-180lb previously. Pt current bed scale wt 190lb per RN at bedside during RD visit. Pt appears WD/WN w/ PO 75% first carb controlled meal last night; lacks minimum malnutrition criteria at this time. Pt requests new zealander fries/hamburgers; RD reinforced ed on carb controlled diet limitations though will send renetimothy jozef w/ entree [facility] tomorrow. Dietary notified. Addendum: 02/14/22 at [address] Amended: Links added. 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 Pt hx T2DM A1C 9.1% this admit per EMR. Pt reports 24-33lb wt loss w/ decrease appetite past 2 weeks per EMR. Pt seen by RD for written/verbal DM ed w/ RD contact information provided. Pt reports takes meds per rx, checks Glu BID w/ ranges fluctuating 150-300mg/dl depending on day though has intentionally decreased noodles intake as it was large source of carbs daily and PCP recently adjusted insulin for better Glu control. Pt reports takes Trulicity Q7D on Wednesday, Lantus BID 47 units, and AM DM med unsure name though likely Glipizide reported in EMR. Pt reports 25lb wt loss past 2 weeks given weakness unable to make it to his kitchen w/ UBW 170-180lb previously. Pt current bed scale wt 190lb per RN at bedside during RD visit making true BMI 34.8; pt ht hx 60-70in prior admits though pt reports true ht current 62in. Pt appears WD/WN w/ PO 75% first carb controlled meal last night; lacks minimum malnutrition criteria at this time. Pt requests new zealander fries/hamburgers; RD reinforced ed on carb controlled diet limitations though will send dudley haskins w/ lori [facility] tomorrow. Dietary notified.
[2022-02-14] MEDS ORDERED: oxyCODONE/APAP 10/325mg tablet PO PRN (15:00)
[2022-02-14] MEDS: normal saline 1000ml 1,000 ML IV SCH (17:41)
--- NOTE | 2022-02-14 18:30 | NUR ---
Received report from Charo LICEA
--- NOTE | 2022-02-14 18:47 | NUR ---
Report given back to Pat LICEA, all questions answered. Pt is doing well at this time. Ate dinner, full use of arms with eating. Numbness does not seem to be progressing at this time, seems to be remaining the same as this morning. Daughter and granddaughter at bedside.
[2022-02-14] MEDS: pramipexole 0.25mg tablet PO SCH (20:17)
[2022-02-14] MEDS: enoxaparin 40mg/0.4ml syringe SUBCUT SCH (20:18)
[2022-02-14] MEDS ORDERED: PREGABALIN PO SCH (21:00)
[2022-02-14] MEDS: insulin glargine (Lantus) pen - multi-dose SQ SCH (21:18)
[2022-02-15 02:00] VITALS: BP 133/63
[2022-02-15] MEDS: HYDROcodone/acetaminophen 10/325mg tab PO PRN ×2 (03:49→08:11)
[2022-02-15 06:00] VITALS: BP 131/68
--- NOTE | 2022-02-15 06:28 | NUR ---
Problems reprioritized. Patient report given, questions answered & plan of care reviewed with Charo LICEA.
[2022-02-15 07:18] LABS: BASOPHILS % (AUTO) 0.7 % (0-1); EOSINOPHILS % (AUTO) 0.9 % (0-6); HEMOGLOBIN 12.6 g/dl (14.0-17.9); LYMPHOCYTES # (AUTO) 0.9 X10'3 (1.1-4.8); LYMPHOCYTES % (AUTO) 21.3 % (21-51); MEAN CORPUSCULAR HEMOGLOBIN 28.7 PG (27.0-31.0); MEAN CORPUSCULAR HGB CONC 33.1 g/dL (33.0-36.5); MEAN CORPUSCULAR VOLUME 86.7 FL (78-98); MEAN PLATELET VOLUME 9.2 FL (7.4-10.4); MONOCYTES # (AUTO) 0.5 X10'3 (0-0.9); MONOCYTES % (AUTO) 10.3 % (2-12); NEUTROPHILS % (AUTO) 66.8 % (42-75); PLATELET COUNT 196 X10'3 (140-440); RED BLOOD COUNT 4.39 X10'6 (4.70-6.10); WHITE BLOOD COUNT 4.4 X10'3 (4.5-11.0)
[2022-02-15 07:43] LABS: ALANINE AMINOTRANSFERASE 33 U/L (12-78); ALBUMIN 2.9 G/DL (3.4-5.0); ALBUMIN/GLOBULIN RATIO 0.8 (1.1-1.5); ALKALINE PHOSPHATASE 67 IU/L (46-116); ANION GAP 8 (8-16); ASPARTATE AMINO TRANSFERASE 31 U/L (10-37); BILIRUBIN,TOTAL 0.6 MG/DL (0.1-1.0); BLOOD UREA NITROGEN 16 MG/DL (7-18); BUN/CREATININE RATIO 18.8 (5.4-32.0); CHLORIDE 106 MMOL/L (99-107); CREATININE 0.85 MG/DL (0.60-1.10); GLUCOSE 157 MG/DL (70-104); POTASSIUM 3.5 MMOL/L (3.5-5.1); SODIUM 139 MMOL/L (135-145); TOTAL CARBON DIOXIDE 24.7 MMOL/L (24-32); TOTAL PROTEIN 6.7 G/DL (6.4-8.2); eGFR 88 ML/MIN
[2022-02-15] MEDS ORDERED: aspirin 81mg, enteric-coated 1 TAB TABLET.DR PO SCH (08:00)
[2022-02-15] MEDS ORDERED: atorvastatin 10mg tablet PO SCH (08:00)
[2022-02-15] MEDS ORDERED: polyethylene glycol 3350 17gm powd pack PO SCH (08:00)
[2022-02-15] MEDS ORDERED: lisinopril 2.5mg tablet PO SCH (08:00)
[2022-02-15] MEDS: pregabalin 25mg capsule PO SCH ×3 (08:09→21:24)
[2022-02-15] MEDS: docusate sod 100mg capsule PO SCH ×2 (08:09→21:25)
[2022-02-15] MEDS: pramipexole 0.25mg tablet PO SCH ×3 (08:10→21:25)
[2022-02-15] MEDS: pantoprazole 40mg Tablet.DR PO SCH (08:10)
[2022-02-15] MEDS: IMMUNE GLOBULIN IV SCH (08:16)
[2022-02-15] MEDS: [UNRECOGNIZED DRUG - OTHER] IV SCH (08:16)
--- NOTE | 2022-02-15 08:35 | NUR ---
VC reading lower than previous, pt also stating it feels harder to get a breath in. Pt given albuterol svn, pt states it improved his breathing. VC redone w/ improvment as well. Will cont to monitor. Addendum: 02/15/22 at [address]36 [address] RT Amended: Links added.
[2022-02-15 10:00] VITALS: BP 114/44
[2022-02-15] MEDS ORDERED: LORazepam 1 MG tablet PO ONE (11:30)
--- NOTE | 2022-02-15 12:21 | NUR ---
Patient has been taken to MRI. No blood sugar checked for lunch. He will be in MRI for up to 2 hrs. I will recheck him at dinner.
[2022-02-15] MEDS: normal saline 1000ml 1,000 ML IV SCH (14:10)
[2022-02-15 17:00] VITALS: BP 117/59
[2022-02-15 18:00] VITALS: BP 117/59
[2022-02-15] MEDS: enoxaparin 40mg/0.4ml syringe SUBCUT SCH (20:00)
[2022-02-15] MEDS: insulin glargine (Lantus) pen - multi-dose SQ SCH (21:00)
[2022-02-15 22:00] VITALS: BP 158/63
--- NOTE | 2022-02-15 23:52 | NUR ---
Transfer packet done, called report to VINAYAK Sands at [facility]. Pt awaiting transfer ETA from [facility] [place]. Pt resting comfortably at this time. All questions answered.
--- NOTE | 2022-02-16 00:44 | NUR ---
Patient transferred by [facility] to [facility] for higher level of care. Pt stable, alert, appropriate. Pt belongings from room taken to on ambulance. Tele taken off and will be given back to tele box.
== END 2022-02-16 00:37 | disposition short-term general hospital, planned readmission (82) | DRG 95 ==
LOC: ER 21:30 → ED HOLD 02-13 02:10 → ORTHO 4S 02-13 19:39
PROVIDERS: ADMIT Family Medicine; ATTEND Internal Medicine
PROC: 30233S1 Transfusion of Nonautologous Globulin into Peripheral Vein, Percutaneous Approach (ICD-10-PCS; principal; 2022-02-13)
DX: G61.0 Guillain-Barre syndrome (principal); G95.29 Other cord compression; I25.10 Atherosclerotic heart disease of native coronary artery without angina pectoris; E11.41 Type 2 diabetes mellitus with diabetic mononeuropathy; E11.42 Type 2 diabetes mellitus with diabetic polyneuropathy; E11.51 Type 2 diabetes mellitus with diabetic peripheral angiopathy without gangrene; E11.65 Type 2 diabetes mellitus with hyperglycemia; E78.00 Pure hypercholesterolemia, unspecified; E78.5 Hyperlipidemia, unspecified; G57.93 Unspecified mononeuropathy of bilateral lower limbs; Z20.822 Contact with and (suspected) exposure to COVID-19; G89.4 Chronic pain syndrome; I11.0 Hypertensive heart disease with heart failure; J44.9 Chronic obstructive pulmonary disease, unspecified; M48.061 Spinal stenosis, lumbar region without neurogenic claudication; M51.36 Other intervertebral disc degeneration, lumbar region; R29.6 Repeated falls; R32 Unspecified urinary incontinence; M54.9 Dorsalgia, unspecified; R15.9 Full incontinence of feces; R19.7 Diarrhea, unspecified; R26.9 Unspecified abnormalities of gait and mobility; Z28.310 Unvaccinated for COVID-19; Z87.440 Personal history of urinary (tract) infections; Z56.0 Unemployment, unspecified; Z79.899 Other long term (current) drug therapy; Z79.82 Long term (current) use of aspirin
CPT/HCPCS: 36415; 70450; 71045; 72141; 72146; 72148; 80053; 80061; 81003; 82948; 83036; 83735; 83880; 84100; 84145; 85025; 85610; 85651; 85730; 86140; 87081; 87635; 92508; 92616; 93922; 93925; 94150; 94640; 94760; 97162; 97530; 99285; C9803; G0378; J1459; J1644; J1650; J1815; J2270; J2405; J7030

== ENCOUNTER 2022-03-27 14:50 | Emergency (ER) | payer MEDICARE, MEDICAID ==
[~2022-03-27] VITALS: Ht 160 cm; Wt 72.7 kg
[~2022-03-27 14:50] MED LIST changes: -CEPH-585 PO; -IBUP-1984 PO; -PREG100C55 PO; +PREG200C28 PO
[2022-03-27 16:25] LABS: CLARITY,URINE CLEAR (Clear); COLOR,URINE STRAW (Yellow); GLUCOSE, URINE >=1000 mg/dl (Neg); KETONES,URINE NEGATIVE (Neg); LEUKOCYTE ESTERASE ,URINE NEGATIVE (Neg); NITRITES, URINE NEGATIVE (Neg); OCCULT BLOOD,URINE SMALL (Neg); PROTEIN,URINE NEGATIVE (Neg); UA COLLECTION TYPE VOIDED; UROBILINOGEN,URINE 0.2 E.U/dL (0.2-1.0)
[2022-03-27 16:34] LABS: BACTERIA,URINE NONE SEEN /HPF (Neg); MUCUS STRANDS FEW /LPF (Neg); RBC,URINE 0-2 /HPF (0-2); SQUAMOUS EPITHELIAL CELL,UR NONE SEEN /LPF (FEW); WBC,URINE 0-4 /HPF (0-4)
[2022-03-27 19:02] VITALS: BP 106/57
--- NOTE | 2022-03-27 21:23 | NUR ---
PT IS STILL AWAITING TRANSPORT VIA [facility]. PT ATTACHED TO VITALS MONITOR AND IS SLEEPING ON RIGHT SIDE IN NO APPARENT DISTRESS
== END 2022-03-27 23:09 | disposition home or self-care (01) ==
LOC: ER 14:50
DX: G61.0 Guillain-Barre syndrome (principal); E11.65 Type 2 diabetes mellitus with hyperglycemia; I10 Essential (primary) hypertension; G89.29 Other chronic pain; M54.9 Dorsalgia, unspecified; E78.00 Pure hypercholesterolemia, unspecified; Z79.899 Other long term (current) drug therapy
CPT/HCPCS: 81001; 99284

== ENCOUNTER 2022-10-16 15:54 | Emergency (ER) | payer MEDICARE, MEDICAID ==
[~2022-10-16] VITALS: Ht 157.5 cm; Wt 7.3 kg
[2022-10-16 17:23] LABS: BASOPHILS % (AUTO) 0.9 % (0-1); EOSINOPHILS # (AUTO) 0.1 X10'3 (0-0.9); EOSINOPHILS % (AUTO) 1.1 % (0-6); HEMATOCRIT 41.4 % (42.0-52.0); HEMOGLOBIN 13.8 g/dl (14.0-17.9); LYMPHOCYTES # (AUTO) 0.9 X10'3 (1.1-4.8); LYMPHOCYTES % (AUTO) 18.6 % (21-51); MEAN CORPUSCULAR HEMOGLOBIN 29.2 PG (27.0-31.0); MEAN CORPUSCULAR HGB CONC 33.4 g/dL (33.0-36.5); MEAN CORPUSCULAR VOLUME 87.5 FL (78-98); MEAN PLATELET VOLUME 9.9 FL (7.4-10.4); MONOCYTES # (AUTO) 0.3 X10'3 (0-0.9); NEUTROPHILS # (AUTO) 3.6 X10'3 (1.8-7.7); NEUTROPHILS % (AUTO) 72.4 % (42-75); PLATELET COUNT 181 X10'3 (140-440); RED BLOOD COUNT 4.74 X10'6 (4.70-6.10); RED CELL DISTRIBUTION WIDTH 14.5 % (11.5-14.5)
[2022-10-16 17:40] LABS: ALANINE AMINOTRANSFERASE 24 U/L (12-78); ALBUMIN 3.8 G/DL (3.4-5.0); ALBUMIN/GLOBULIN RATIO 1.1 (1.1-1.5); ALKALINE PHOSPHATASE 112 IU/L (46-116); ANION GAP 9 (8-16); ASPARTATE AMINO TRANSFERASE 21 U/L (10-37); BILIRUBIN,TOTAL 0.6 MG/DL (0.1-1.0); BLOOD UREA NITROGEN 18 MG/DL (7-18); BUN/CREATININE RATIO 12.2 (5.4-32.0); CALCIUM 8.8 MG/DL (8.5-10.1); CHLORIDE 97 MMOL/L (99-107); CREATININE 1.47 MG/DL (0.60-1.10); MAGNESIUM 2.2 MG/DL (1.5-2.4); POTASSIUM 4.4 MMOL/L (3.5-5.1); SODIUM 136 MMOL/L (135-145); TOTAL PROTEIN 7.2 G/DL (6.4-8.2); eGFR 47 ML/MIN
[2022-10-16 17:42] LABS: GLUCOSE 529 MG/DL (70-104)
[2022-10-16] MEDS ORDERED: normal saline 1000ML IV soln IVB ONE (18:05)
[2022-10-16] MEDS ORDERED: insulin glargine (Lantus) pen - multi-dose SQ ONE (18:05)
[2022-10-16] MEDS ORDERED: oxyCODONE/APAP 10/325mg tablet PO ONE (18:15)
[2022-10-16 18:36] LABS: ETHANOL < 0.010 GM/DL (0.0-0.010)
--- NOTE | 2022-10-16 19:30 | NUR ---
I agree with A Evaristo Wei assessment.
[2022-10-16 19:40] LABS: CLARITY,URINE CLEAR (Clear); COLOR,URINE YELLOW (Yellow); GLUCOSE, URINE >=1000 mg/dl (Neg); KETONES,URINE 15 mg/dl (Neg); LEUKOCYTE ESTERASE ,URINE NEGATIVE (Neg); NITRITES, URINE NEGATIVE (Neg); OCCULT BLOOD,URINE NEGATIVE (Neg); PH,URINE 5.5 (4.8-8.0); PROTEIN,URINE NEGATIVE (Neg); UROBILINOGEN,URINE 0.2 E.U/dL (0.2-1.0)
[2022-10-16 19:42] LABS: UA COLLECTION TYPE VOIDED
[2022-10-16 19:50] LABS: BACTERIA,URINE NONE SEEN /HPF (Neg); MUCUS STRANDS NONE SEEN /LPF (Neg); RBC,URINE NONE SEEN /HPF (0-2); SQUAMOUS EPITHELIAL CELL,UR NONE SEEN /LPF (FEW); WBC,URINE 0-4 /HPF (0-4)
[2022-10-16 19:52] LABS: URINE AMPHETAMINE SCREEN NEGATIVE (Neg); URINE BARBITUATE SCREEN NEGATIVE (Neg); URINE BENZODIAZEPINES SCREEN NEGATIVE (Neg); URINE CANNABINOID SCREEN NEGATIVE (Neg); URINE COCAINE SCREEN NEGATIVE (Neg); URINE METHADONE SCREEN NEGATIVE (Neg); URINE OPIATE SCREEN NEGATIVE (Neg); URINE PHENCYCLIDINE SCREEN NEGATIVE (Neg)
[2022-10-16] MEDS ORDERED: normal saline 1000ml 1,000 ML IV ONE (20:50)
[2022-10-16 23:00] VITALS: BP 194/92
== END 2022-10-16 23:03 | disposition home or self-care (01) ==
LOC: ER 15:55
DX: E11.65 Type 2 diabetes mellitus with hyperglycemia (principal); Z20.822 Contact with and (suspected) exposure to COVID-19; G89.29 Other chronic pain; M54.50 Low back pain, unspecified; R32 Unspecified urinary incontinence; F32.A Depression, unspecified; R45.851 Suicidal ideations; I10 Essential (primary) hypertension; E78.00 Pure hypercholesterolemia, unspecified; Z56.0 Unemployment, unspecified
CPT/HCPCS: 36415; 80053; 80305; 80320; 81001; 82948; 83735; 85025; 87811; 96360; 96372; 99284; J1815; J7030

== ENCOUNTER 2022-11-08 21:46 | Emergency (ER) | payer MEDICARE, MEDICAID ==
[~2022-11-08] VITALS: Ht 157.5 cm; Wt 95.0 kg
[2022-11-08] MEDS ORDERED: methylnaltrexone br 12mg/0.6ml inj***SubQ only SQ ONE (22:10)
[2022-11-08] MEDS ORDERED: lactulose 20gm/30ml cup PO ONE (22:10)
[2022-11-08 23:09] LABS: CLARITY,URINE CLEAR (Clear); COLOR,URINE YELLOW (Yellow); GLUCOSE, URINE >=1000 mg/dl (Neg); KETONES,URINE TRACE mg/dl (Neg); LEUKOCYTE ESTERASE ,URINE NEGATIVE (Neg); NITRITES, URINE NEGATIVE (Neg); OCCULT BLOOD,URINE TRACE-INTACT (Neg); PH,URINE 5.5 (4.8-8.0); PROTEIN,URINE NEGATIVE (Neg); UROBILINOGEN,URINE 0.2 E.U/dL (0.2-1.0)
[2022-11-08 23:14] LABS: UA COLLECTION TYPE CLN CATCH MIDSTREAM
[2022-11-08 23:17] LABS: BACTERIA,URINE NONE SEEN /HPF (Neg); RBC,URINE 0-2 /HPF (0-2); WBC,URINE 0-4 /HPF (0-4)
[2022-11-08 23:18] LABS: MUCUS STRANDS FEW /LPF (Neg); SQUAMOUS EPITHELIAL CELL,UR FEW /LPF (FEW)
[2022-11-09 00:26] LABS: BASOPHILS # (AUTO) 0.1 X10'3 (0-0.2); BASOPHILS % (AUTO) 1.1 % (0-1); EOSINOPHILS # (AUTO) 0.1 X10'3 (0-0.9); EOSINOPHILS % (AUTO) 1.2 % (0-6); HEMATOCRIT 41.7 % (42.0-52.0); HEMOGLOBIN 14.1 g/dl (14.0-17.9); LYMPHOCYTES # (AUTO) 1.2 X10'3 (1.1-4.8); LYMPHOCYTES % (AUTO) 21.1 % (21-51); MEAN CORPUSCULAR HEMOGLOBIN 29.5 PG (27.0-31.0); MEAN CORPUSCULAR HGB CONC 33.8 g/dL (33.0-36.5); MEAN CORPUSCULAR VOLUME 87.3 FL (78-98); MEAN PLATELET VOLUME 10.4 FL (7.4-10.4); MONOCYTES # (AUTO) 0.4 X10'3 (0-0.9); MONOCYTES % (AUTO) 6.7 % (2-12); NEUTROPHILS # (AUTO) 4.1 X10'3 (1.8-7.7); NEUTROPHILS % (AUTO) 69.9 % (42-75); PLATELET COUNT 210 X10'3 (140-440); RED BLOOD COUNT 4.78 X10'6 (4.70-6.10); RED CELL DISTRIBUTION WIDTH 13.9 % (11.5-14.5); WHITE BLOOD COUNT 5.9 X10'3 (4.5-11.0)
[2022-11-09] MEDS ORDERED: LIDOcaine 2% 10ml TOPICAL JELLY (Urojet) MM ONE (00:35)
[2022-11-09 00:46] LABS: ALANINE AMINOTRANSFERASE 19 U/L (12-78); ALBUMIN/GLOBULIN RATIO 1.1 (1.1-1.5); ALKALINE PHOSPHATASE 110 IU/L (46-116); ANION GAP 15 (8-16); ASPARTATE AMINO TRANSFERASE 23 U/L (10-37); BILIRUBIN,TOTAL 0.8 MG/DL (0.1-1.0); BLOOD UREA NITROGEN 26 MG/DL (7-18); BUN/CREATININE RATIO 14.5 (5.4-32.0); CALCIUM 9.8 MG/DL (8.5-10.1); CHLORIDE 96 MMOL/L (99-107); CREATININE 1.79 MG/DL (0.60-1.10); LIPASE 113 U/L (73-393); SODIUM 135 MMOL/L (135-145); TOTAL CARBON DIOXIDE 23.9 MMOL/L (24-32); TOTAL PROTEIN 7.7 G/DL (6.4-8.2); eGFR 37 ML/MIN
[2022-11-09] MEDS ORDERED: polyethylene glycol 3350 17gm powd pack PO SCH (00:53)
[2022-11-09] MEDS ORDERED: LIDOcaine Viscous 15ml cup MM ONE (00:55)
[2022-11-09 01:09] LABS: GLUCOSE 466 MG/DL (70-104)
[2022-11-09] MEDS ORDERED: normal saline 1000ML IV soln IVB ONE (01:20)
[2022-11-09] MEDS ORDERED: insulin regular, human 10 units/0.1 ml syringe SQ ONE ×2 (01:35→03:45)
[2022-11-09] MEDS ORDERED: LACT10SO3 PO (04:59)
[2022-11-09] MEDS ORDERED: POLY119P2 PO (04:59)
[2022-11-09 05:17] VITALS: BP 132/77
== END 2022-11-09 05:19 | disposition home or self-care (01) ==
LOC: ER 21:47
DX: K59.00 Constipation, unspecified (principal); E11.65 Type 2 diabetes mellitus with hyperglycemia; I10 Essential (primary) hypertension; E78.00 Pure hypercholesterolemia, unspecified; G89.29 Other chronic pain; Z56.0 Unemployment, unspecified
CPT/HCPCS: 36415; 74018; 80053; 81001; 82948; 83690; 85025; 87088; 96360; 96372; 99284; J1815; J2212; J7030

== ENCOUNTER 2022-12-03 23:43 | Emergency (ER) | payer MEDICARE, MEDICAID ==
[~2022-12-03] VITALS: Ht 157.5 cm; Wt 71.0 kg
[~2022-12-03 23:43] MED LIST changes: +LACT10SO3 PO
[2022-12-04] MEDS ORDERED: ondansetron/PF 4mg/2ml inj IV ONE (00:20)
[2022-12-04] MEDS ORDERED: morphine 2 MG/ML inj. syringe IV ONE (00:20)
[2022-12-04] MEDS ORDERED: normal saline 1000ML IV soln IVB ONE ×2 (00:20→01:45)
[2022-12-04 00:44] LABS: BASOPHILS # (AUTO) 0.1 X10'3 (0-0.2); EOSINOPHILS % (AUTO) 0.6 % (0-6); HEMATOCRIT 42.7 % (42.0-52.0); HEMOGLOBIN 14.2 g/dl (14.0-17.9); LYMPHOCYTES # (AUTO) 0.9 X10'3 (1.1-4.8); LYMPHOCYTES % (AUTO) 14.5 % (21-51); MEAN CORPUSCULAR HEMOGLOBIN 29.7 PG (27.0-31.0); MEAN CORPUSCULAR HGB CONC 33.3 g/dL (33.0-36.5); MEAN CORPUSCULAR VOLUME 89.2 FL (78-98); MEAN PLATELET VOLUME 10.1 FL (7.4-10.4); MONOCYTES # (AUTO) 0.3 X10'3 (0-0.9); NEUTROPHILS % (AUTO) 78.9 % (42-75); PLATELET COUNT 205 X10'3 (140-440); RED BLOOD COUNT 4.79 X10'6 (4.70-6.10); RED CELL DISTRIBUTION WIDTH 13.8 % (11.5-14.5); WHITE BLOOD COUNT 6.4 X10'3 (4.5-11.0)
[2022-12-04 01:09] LABS: ALANINE AMINOTRANSFERASE 17 U/L (12-78); ALKALINE PHOSPHATASE 134 IU/L (46-116); ANION GAP 13 (8-16); ASPARTATE AMINO TRANSFERASE 29 U/L (10-37); BILIRUBIN,TOTAL 0.7 MG/DL (0.1-1.0); BLOOD UREA NITROGEN 37 MG/DL (7-18); BUN/CREATININE RATIO 16.7 (5.4-32.0); CALCIUM 9.1 MG/DL (8.5-10.1); CHLORIDE 96 MMOL/L (99-107); CREATININE 2.21 MG/DL (0.60-1.10); POTASSIUM 4.7 MMOL/L (3.5-5.1); SODIUM 134 MMOL/L (135-145); TOTAL CARBON DIOXIDE 24.7 MMOL/L (24-32); eGFR 29 ML/MIN
[2022-12-04] MEDS ORDERED: morphine 4 MG/ML inj SYRINge IV ONE (01:10)
[2022-12-04 01:14] LABS: GLUCOSE 598 MG/DL (70-104)
[2022-12-04] MEDS ORDERED: insulin regular, human 10 units/0.1 ml syringe IV ONE (01:20)
[2022-12-04] MEDS ORDERED: insulin regular, human 10 units/0.1 ml syringe SQ ONE (01:20)
[2022-12-04 03:07] VITALS: BP 139/78
== END 2022-12-04 03:09 | disposition home or self-care (01) ==
LOC: ER 23:44
DX: E11.65 Type 2 diabetes mellitus with hyperglycemia (principal); R51.9 Headache, unspecified; E86.0 Dehydration; E78.00 Pure hypercholesterolemia, unspecified; I10 Essential (primary) hypertension; Z56.0 Unemployment, unspecified
CPT/HCPCS: 36415; 70450; 80053; 82948; 84145; 85025; 96361; 96374; 96375; 96376; 99285; J1815; J2270; J2405; J7030